=== PATIENT | female | born 1995 | race Caucasian/White ===

== ENCOUNTER 2021-03-08 16:27 | Emergency (ER) | payer OTHER ==
[2021-03-08] MEDS ORDERED: NORCO 5-325 TA1 EACH PO (19:32)
== END 2021-03-08 19:40 | disposition home or self-care (01) ==
LOC: FER 16:27
DX: S32.10XA Unspecified fracture of sacrum, initial encounter for closed fracture (principal); W19.XXXA Unspecified fall, initial encounter
CPT/HCPCS: 72220